=== PATIENT | male | born 1985 | race Caucasian/White ===

== ENCOUNTER 2016-11-30 10:50 | Emergency (ER) | payer MEDICAID ==
[~2016-11-30] VITALS: Ht 175.3 cm; Wt 74.0 kg
[2016-11-30 10:54] VITALS: Ht 175.3 cm; Wt 74.0 kg
--- NOTE | 2016-11-30 12:14 | RADRPT ---
PROCEDURE: XR Chest AP portable CLINICAL INDICATION: Chest pain, short of breath TECHNIQUE: An AP portable radiograph of the chest was submitted. COMPARISON: None. FINDINGS: Support Hardware: None Cardiovascular: The cardiovascular silhouette appears unremarkable. Lung Navas: The lung navas appear clear with no nodule, alveolar infiltrate, or interstitial promi nence evident. Pleural Spaces: No pneumothorax or pleural effusion is identified. Osseous Structures: The osseous structures appear intact. Soft Tissues: The soft tissues appear unremarkable. IMPRESSION: Unremarkable portable chest. Physician Gissel Date Time Electronically viewed and signed by Andrew Cyr Physician on 11/30/2016 12:14 /
[2016-11-30] MEDS ORDERED: IBUP400T22 PO (12:41)
--- NOTE | 2016-11-30 12:48 | ERD ---
ER Documentation Chief Complaint Date/Time DATE: 11/30/16 TIME: 12:42 Chief Complaint chest pain with anxiety since morning HPI Patient is a 31-year-old male who presents to the emergency department with chest pain which started 2-3 hours ago. Patient describes the pain to be episodic in nature, lasting 3-4 minutes. Patient states pain is localized to his left chest. Pain is nonradiating, nonpleuritic. Patient denies any shortness of breath. Patient describes the pain to be "pounding and pulsating" . Patient denies any diaphoresis, pain radiating down his left upper extremity , nausea, vomiting, loss of consciousness. Patient states that he feels "cold inside". Patient reports that patient is often stress due to work. Patient denies any recent travel, recent surgeries, leg swelling. Patient denies any history of cardiac disease in his family. ROS All systems reviewed and are negative except as per history of present illness. Medications Home Meds Active Scripts Ibuprofen* (Motrin*) 400 Mg Tab, 400 MG PO Q6, #30 TAB Prov:CHELE CONNOR PA-C 11/30/16 Allergies Allergies: Coded Allergies: No Known Allergy (Unverified , 03/12/15) PMhx/Soc Medical and Surgical Hx: pt denies Medical Hx, pt denies Surgical Hx History of Surgery: No Anesthesia Reaction: No Hx Neurological Disorder: No Hx Respiratory Disorders: No Hx Cardiac Disorders: No Hx Psychiatric Problems: No Hx Miscellaneous Medical Probl: No Hx Alcohol Use: Yes (3-5 times a week) Hx Substance Use: No Hx Tobacco Use: No Smoking Status: Never smoker FmHx Family History: No coronary disease, No diabetes Physical Exam Vitals Vital Signs Date Time Temp Pulse Resp B/P Pulse Ox O2 Delivery O2 Flow Rate FiO2 11/30/16 10:54 98.9 90 18 167/87 99 Physical Exam GENERAL: Well-developed, well-nourished male. Appears in no acute distress. Speaking in full sentences HEAD: Normocephalic, atraumatic. Circular, 1 cm patches of missing hair on scalp. EYES: Pupils are equally reactive bilaterally. EOMs grossly intact. No conjunctival erythema. ENT: Moist mucous membranes. No uvula deviation. No kissing tonsils. NECK: Supple. No meningismus. Normal range of motion of the neck. LUNG: Clear to auscultation bilaterally. No rhonchi, wheezing, rales or coarse breath sounds. HEART: Regular rate and rhythm. No murmurs, rubs or gallops. BACK: No midline tenderness. EXTREMITIES: Equal pulses bilaterally. No peripheral clubbing, cyanosis or edema. No unilateral leg swelling. NEUROLOGIC: Alert and oriented. Moving all four extremities without any difficulty. Normal speech. Steady gait. SKIN: Normal color. Warm and dry. No rashes or lesions. Results 24 hrs Laboratory Tests Test 11/30/16 11:43 Troponin I < 0.012ng/ml Procedures/MDM ED COURSE: The patient was stable throughout ED course. I kept the patient and/or family informed of laboratory and diagnostic imaging results throughout the ED course. EKG: Read by Dr. Fonseca, attending physician. EKG shows normal sinus rhythm at a rate of [address] elevations or T wave changes were noted. DIAGNOSTIC IMAGING: Read by radiologist. DIAGNOSTIC IMAGING REPORT Patient: BRE AUSTIN : 1985 Age: 31 Sex: M MR #: [id number] DOS: 11/30/16 1135 Ordering MD: CHELE CONNOR PA-C Location: [facility] Room/Bed: PROCEDURE: XR Chest AP portable CLINICAL INDICATION: Chest pain, short of breath TECHNIQUE: An AP portable radiograph of the chest was submitted. COMPARISON: None. FINDINGS: Support Hardware: None Cardiovascular: The cardiovascular silhouette appears unremarkable. Lung Miner: The lung miner appear clear with no nodule, alveolar infiltrate, or interstitial prominence evident. Pleural Spaces: No pneumothorax or pleural effusion is identified. Osseous Structures: The osseous structures appear intact. Soft Tissues: The soft tissues appear unremarkable. IMPRESSION: Unremarkable portable chest. Physician Gissel Date Time Electronically viewed and signed by Physician Gissel on 11/30/2016 12:14 RH/ CC: CHELE CONNOR PA-C PROCEDURES: None. MEDICAL DECISION MAKING: This is a 31-year-old male who presents with chest pain 2-3 hours. Patient does report "pounding and pulsating" pain in his chest. Patient describes the pain to be episodic. Patient denied any leg swelling, recent surgeries, travel , exogenous estrogen use. Vital signs were reviewed. Patient was afebrile. Patient was not hypoxic. Cardiac exam was normal. Lung exam was normal. EKG was within normal limits. Chest x-ray was unremarkable. Troponin was negative. Patient's heart score was calculated to be 1. At this time, the patient's presentation is most consistent with palpitations. Low suspicion for acute coronary syndrome, arrhythmia, pericarditis, PE, pneumothorax, pneumonia or pleural effusion. PRESCRIPTIONS: Ibuprofen DISCHARGE: At this time, patient is stable for discharge and outpatient management. Patient was provided with a copy of all blood work and imaging studies obtained today. I have instructed the patient to follow-up with his/her primary care physician in 1-2 days. Patient was provided with referral information see a truck hop. 24 hour Holter monitoring and/or stress echo was advised to the patient. Given referral information for concerns of missing hair patches. I have instructed the patient to promptly return to the ER at any time for any new or worsening symptoms including increased increased pain, fever, nausea, vomiting, numbness, weakness, diaphoresis or LOC. The patient and/or family expressed understanding of and agreement with this plan. All questions were answered. Home care instructions were provided. Departure Diagnosis: Primary Impression: Palpitations Condition: Stable Patient Instructions: Palpitations Referrals: XIOMY HOOKS BRUCE BHATIA,MANSOOR EVANS,ANIA BARRIENTOS,[facility] YOU HAVE RECEIVED A MEDICAL SCREENING EXAM AND THE RESULTS INDICATE THAT YOU DO NOT HAVE A CONDITION THAT REQUIRES URGENT TREATMENT IN THE EMERGENCY DEPARTMENT. FURTHER EVALUATION AND TREATMENT OF YOUR CONDITION CAN WAIT UNTIL YOU ARE SEEN IN YOUR DOCTORS OFFICE WITHIN THE NEXT 1-2 DAYS. IT IS YOUR RESPONSIBILITY TO MAKE AN APPOINTMENT FOR FOLOW-UP CARE. IF YOU HAVE A PRIMARY DOCTOR --you should call your primary doctor and schedule an appointment IF YOU DO NOT HAVE A PRIMARY DOCTOR YOU CAN CALL OUR PHYSICIAN REFERRAL HOTLINE AT IF YOU CAN NOT AFFORD TO SEE A PHYSICIAN YOU CAN CHOSE FROM THE FOLLOWING [facility] [address] [facility] [address] [facility] [address] [facility] [address] [facility] [address] [facility]. [facility] [address] [facility]. [facility] YOU HAVE RECEIVED A MEDICAL SCREENING EXAM AND THE RESULTS INDICATE THAT YOU DO NOT HAVE A CONDITION THAT REQUIRES URGENT TREATMENT IN THE EMERGENCY DEPARTMENT. FURTHER EVALUATION AND TREATMENT OF YOUR CONDITION CAN WAIT UNTIL YOU ARE SEEN IN YOUR DOCTORS OFFICE WITHIN THE NEXT 1-2 DAYS. IT IS YOUR RESPONSIBILITY TO MAKE AN APPOINTMENT FOR FOLOW-UP CARE. IF YOU HAVE A PRIMARY DOCTOR --you should call your primary doctor and schedule and appointment IF YOU DO NOT HAVE A PRIMARY DOCTOR YOU CAN CALL OUR PHYSICIAN REFERRAL HOTLINE AT . IF YOU CAN NOT AFFORD TO SEE A PHYSICIAN YOU CAN CHOSE FROM THE FOLLOWING [facility] INSTITUTIONS: [facility] [address] [place] [address] [facility] [address] [place] [address] [facility] [address] [place] [address] Additional Instructions: Call your primary care doctor TOMORROW for an appointment during the next 1-2 days.See the doctor sooner or return here if your condition worsens before your appointment time. Patient advised to follow-up with truck hop for further management of his symptoms. Patient given referral information. See referral information. CHELE CONNOR PA-C November 30, 2016 12:48
== END 2016-11-30 13:03 | disposition home or self-care (01) ==
LOC: FTE 10:50
DX: R00.2 Palpitations (principal)
CPT/HCPCS: 36415; 71010; 84484; 93005; Z7502

== ENCOUNTER 2017-02-04 17:10 | Emergency (ER) | payer MEDICAID ==
[~2017-02-04] VITALS: Wt 79.5 kg
[~2017-02-04 17:10] MED LIST: IBUP400T22 PO
[2017-02-04] MEDS ORDERED: BACITRACIN 0.9 GM OINT TOP ONE (18:00)
[2017-02-04] MEDS ORDERED: IBUPROFEN 600 MG TAB PO ONE (18:00)
--- NOTE | 2017-02-04 18:44 | RADRPT ---
PROCEDURE: XR Tibia and Fibula. CLINICAL INDICATION: Lower leg pain TECHNIQUE: Two views of the right tibia and fibula are available for review. COMPARISON: None available FINDINGS: The right tibia and fibula are intact. No acute fracture or dislocation is seen. No radiopaque for eign body is identified. The soft tissues are unremarkable. IMPRESSION: 1. Unremarkable right tibia and fibula x-ray series. RPTAT: QQ .Boone Heck MD, MD Date Time Electronically viewed and signed by .Boone Heck MD, on 02/04/2017 18:43 .L/
--- NOTE | 2017-02-04 18:45 | RADRPT ---
PROCEDURE: XR Ankle. CLINICAL INDICATION: Pain. TECHNIQUE: AP oblique and lateral views of the right ankle were performed. COMPARISON: None. FINDINGS: The osseous structures and articular spaces of the right ankle appear intact. No acute fracture or dislocation is seen. No radiopaque foreign body is identified. There is no significant soft tissue swelling. IMPRESSION: 1. Unremarkable right ankle x-ray series. RPTAT: QQ .Boone Heck MD, MD Date Time Electronically viewed and signed by .Boone Heck MD, on 02/04/2017 18:45 .L/
--- NOTE | 2017-02-04 18:45 | RADRPT ---
PROCEDURE: XR Foot. CLINICAL INDICATION: Right foot pain TECHNIQUE: AP, lateral, and oblique views of the right foot are available for review. COMPARISON: None available FINDINGS: The osseous structures, articular spaces, and surrounding soft tissues are intact. No acute fractur e or dislocation is seen. No radiopaque foreign body is identified. Bony mineralization is normal. IMPRESSION: 1. Unremarkable right foot x-ray series. RPTAT: QQ .Boone Heck MD, MD Date Time Electronically viewed and signed by .Boone Heck MD, on 02/04/2017 18:44 .L/
[2017-02-04] MEDS ORDERED: IBUP-1542 PO (19:17)
[2017-02-04] MEDS ORDERED: CEPH-443 PO (19:17)
[2017-02-04 19:37] VITALS: BP 123/75; PULSE 62; RESP 20; TEMP 98.6
--- NOTE | 2017-02-04 21:23 | ERD ---
ER Documentation Chief Complaint Date/Time DATE: 02/04/17 TIME: 21:19 Chief Complaint RIGHT BUSH AREA LACERATION FROM A FALL FROM STAIRS HPI This is a 31-year-old male that presents to the ER after a laceration that he got after he fell down the stairs. This happened to days ago. Patient is not complaining of bush pain that extends to his ankle and foot. He denies any numbness or tingling to the area. He has not tried anything for his pain. He has not had any fevers or chills. He denies any discharge or redness to the area. ROS 12 point review of systems was done, all negative except per HPI. Medications Home Meds Active Scripts Cephalexin* (Keflex*) 500 Mg Capsule, 500 MG PO BID for 7 Days, CAP Prov:JERROD PEACOCK 02/04/17 Ibuprofen* (Motrin*) 600 Mg Tab, 600 MG PO Q6, #30 TAB Prov:JERROD PEACOCK C 02/04/17 Ibuprofen* (Motrin*) 400 Mg Tab, 400 MG PO Q6, #30 TAB Prov:CHELE CONNOR PA-C 11/30/16 Allergies Allergies: Coded Allergies: No Known Allergy (Unverified , 02/04/17) PMhx/Soc Medical and Surgical Hx: pt denies Medical Hx, pt denies Surgical Hx History of Surgery: No Anesthesia Reaction: No Hx Neurological Disorder: No Hx Respiratory Disorders: No Hx Cardiac Disorders: No Hx Psychiatric Problems: No Hx Miscellaneous Medical Probl: No Hx Alcohol Use: Yes (3-5 times a week) Hx Substance Use: No Hx Tobacco Use: No Smoking Status: Never smoker Physical Exam Vitals Vital Signs Date Time Temp Pulse Resp B/P Pulse Ox O2 Delivery O2 Flow Rate FiO2 02/04/17 19:37 98.6 62 20 123/75 100 Room Air 02/04/17 17:12 98.6 65 20 138/82 99 Physical Exam GENERAL: The patient is well developed and appropriate for usual state of health , in no apparent distress. HEENT: Atraumatic. CHEST: Clear to auscultation bilaterally. There are no rales, wheezes or rhonchi. HEART: Regular rate and rhythm. No murmurs, clicks, rubs or gallops. EXTREMITIES:there is a 3cm linear vertical laceration to the right bush. Patient is ttp to the right bush. He has full ROM of the right ankle. he is not ttp to the lateral or medial malleolus. He has full ROM of foot with normal pulses and normal capillary refill NEURO: Alert and oriented. SKIN: There is no apparent rash or petechia. The skin is warm and dry. Results 24 hrs Current Medications Medications (Trade) Dose Ordered Sig/Srinivasan Route PRN Reason Start Time Stop Time Status Last Admin Dose Admin Ibuprofen (Motrin) 600 mg ONCE ONCE PO 02/04/17 18:00 02/04/17 18:01 DC 02/04/17 18:40 Bacitracin (Bacitracin Oint (Ud)) 1 applic ONCE ONCE TOP 02/04/17 18:00 02/04/17 18:01 DC 02/04/17 19:04 Procedures/MDM This is a 31-year-old male presents to the ER with a laceration to his right bush, unfortunately patient presents 48 hours after laceration and closure is not recommended at this time. There is no evidence of erythema or discharge, however patient will be given antibiotics since we do not do to close his laceration. There is no evidence of fractures or dislocations. Patient has normal range of motion of his right lower extremity and is neurovascularly intact. Suspicion for deep space infection, osteomyelitis, acute compartment syndrome is low. Patient is afebrile with no pain in the ER. He is to follow- up with his primary care doctor within 1-2 days or return to ER sooner if symptoms worsen. My medical decision making was shared with the patient he understands and agrees with plan. Departure Diagnosis: Primary Impression: Laceration Condition: Stable Patient Instructions: Laceration, All Additional Instructions: Llame al doctor DEVEN y jarrett kendra JUD PARA DENTRO DE 1-2 GONSALEZ.Dgale a la secretaria que nosotros le instruimos hacer esta jud.Avise o llame si perry condicin se empeora antes de la jud. Regresa aqui si peor o no mejor. JERROD PEACOCK Feb 04, 2017 21:23
== END 2017-02-04 19:38 | disposition home or self-care (01) ==
LOC: FTE 17:10
DX: S81.811A Laceration without foreign body, right lower leg, initial encounter (principal); W10.9XXA Fall (on) (from) unspecified stairs and steps, initial encounter; Y92.9 Unspecified place or not applicable
CPT/HCPCS: 73590; 73610; 73630; Z7502; Z7610

== ENCOUNTER 2018-10-02 10:04 | Emergency (ER) | payer MEDICAID ==
[~2018-10-02] VITALS: Wt 78.0 kg
[~2018-10-02 10:04] MED LIST changes: +CEPH-443 PO; +IBUP-1542 PO; +IBUP-1561 PO; -IBUP400T22 PO
[2018-10-02 10:11] VITALS: BP 133/86; PULSE 93; RESP 18
[2018-10-02] MEDS ORDERED: DOXY100T20 PO (10:23)
--- NOTE | 2018-10-02 10:27 | ERD ---
ER Documentation Chief Complaint Chief Complaint SCALP RASH HPI Patient is a 33-year-old male presents the ER for concerns of a rash in his scalp. Patient states he has had a rash for 1-2 years now. Patient states that he has tiny bumps which pop and bleed. He states that it is itchy in nature. He denies any fevers or chills. Patient denies any new creams, lotions, medications or foods. Denies any new environmental changes. ROS All systems reviewed and are negative except as per history of present illness. Medications Home Meds Active Scripts Doxycycline Hyclate* (Doxycycline Hyclate*) 100 Mg Tablet.dr, 100 MG PO BID for 10 Days, TAB Prov:CHELE CONNOR PA-C 10/02/18 Cephalexin* (Keflex*) 500 Mg Capsule, 500 MG PO BID for 7 Days, CAP Prov:JERROD PEACOCK 02/04/17 Ibuprofen* (Motrin*) 600 Mg Tab, 600 MG PO Q6, #30 TAB Prov:JERROD PEACOCK 02/04/17 Ibuprofen* (Motrin*) 400 Mg Tab, 400 MG PO Q6, #30 TAB Prov:CHELE CONNOR PA-C 11/30/16 Allergies Allergies: Coded Allergies: No Known Allergy (Unverified , 02/04/17) PMhx/Soc History of Surgery: No Anesthesia Reaction: No Hx Neurological Disorder: No Hx Respiratory Disorders: No Hx Cardiac Disorders: No Hx Psychiatric Problems: No Hx Miscellaneous Medical Probl: No Hx Alcohol Use: Yes (3-5 times a week) Hx Substance Use: No Hx Tobacco Use: No FmHx Family History: No diabetes Physical Exam Vitals Vital Signs Date Temp Pulse Resp B/P (MAP) Pulse Ox O2 O2 Flow FiO2 Time Delivery Rate 10/02/18 97.8 93 18 133/86 99 10:11 (102) Physical Exam GENERAL: Well-developed, well-nourished male. Appears in no acute distress. Speaking in full sentences. HEAD: Normocephalic, atraumatic. EYES: Pupils are equally reactive bilaterally. EOMs grossly intact. No conjunctival erythema. ENT: Moist mucous membranes. No uvula deviation. No kissing tonsils. NECK: Supple. No meningismus. Normal range of motion of the neck. LUNG: No respiratory distress. EXTREMITIES: Equal pulses bilaterally. No peripheral clubbing, cyanosis or edema. No unilateral leg swelling. NEUROLOGIC: Alert and oriented. Moving all four extremities without any difficulty. Normal speech. Steady gait. SKIN: Numerous cystic lesions noted on the patient's scalp. Excoriations ferrer noted. No active bleeding or discharge. Areas of alopecia noted. Procedures/MDM MEDICAL DECISION MAKING: This is a 33-year-old male who presents to the ER for concerns of ongoing rash in his scalp for the last 1-2 years. Vital signs were reviewed. Patient was afebrile. Patient is not diabetic. Physical exam findings are concerning for a cystic scalp rash versus folliculitis. Patient will be given doxycycline and advised to follow-up with bilingual call center representative for further management of symptoms. Low suspicion for necrotizing fasciitis, sepsis, gangrene, Jeremi-Kvng syndrome, toxic epidural necrolysis, abscess, cellulitis, herpes zoster, viral exanthem, anaphylaxis, fungal infection, insect bite, impetigo, dermatitis. Patient was nontoxic, [id number] prior to discharge. PRESCRIPTIONS: Doxycycline DISCHARGE: At this time, patient is stable for discharge and outpatient management. I have advised the patient to avoid any new products, creams or possible allergens. I have advised the patient to avoid scratching the lesions. I have instructed the patient to follow-up with his/her primary care physician in 1-2 days. If symptoms persist, patient may need to see a bilingual call center representative for further examinations and testing. I have instructed the patient to promptly return to the ER at any time for any new or worsening symptoms including increased pain, fever, redness, swelling, warmth, difficulty breathing or vomiting. The patient and/or family expressed understanding of and agreement with this plan. All questions were answered. Home care instructions were provided. Disclaimer: Inadvertent spelling and grammatical errors are likely due to EHR/dictation software use and do not reflect on the overall quality of patient care. Also, please note that the electronic time recorded on this note does not necessarily reflect the actual time of the patient encounter. Departure Diagnosis: Primary Impression: Rash Condition: Fair Patient Instructions: Self-Care for Skin Rashes Referrals: LIDIA RIDDLE MD,OMAR SOLARES,GRIS ALCARAZ,LIAN PRIETO,RAMILA JHAVERI,ERLINDA COLMENARES,ERLINDA [facility] YOU HAVE RECEIVED A MEDICAL SCREENING EXAM AND THE RESULTS INDICATE THAT YOU DO NOT HAVE A CONDITION THAT REQUIRES URGENT TREATMENT IN THE EMERGENCY DEPARTMENT. FURTHER EVALUATION AND TREATMENT OF YOUR CONDITION CAN WAIT UNTIL YOU ARE SEEN IN YOUR DOCTORS OFFICE WITHIN THE NEXT 1-2 DAYS. IT IS YOUR RESPONSIBILITY TO MAKE AN APPOINTMENT FOR FOLOW-UP CARE. IF YOU HAVE A PRIMARY DOCTOR --you should call your primary doctor and schedule an appointment IF YOU DO NOT HAVE A PRIMARY DOCTOR YOU CAN CALL OUR PHYSICIAN REFERRAL HOTLINE AT IF YOU CAN NOT AFFORD TO SEE A PHYSICIAN YOU CAN CHOSE FROM THE FOLLOWING [facility] [address] [facility]. [facility] [address] [facility] [address] [facility] [facility] [address] [facility] [address] [facility]. [facility] [address] [facility]. [facility] YOU HAVE RECEIVED A MEDICAL SCREENING EXAM AND THE RESULTS INDICATE THAT YOU DO NOT HAVE A CONDITION THAT REQUIRES URGENT TREATMENT IN THE EMERGENCY DEPARTMENT. FURTHER EVALUATION AND TREATMENT OF YOUR CONDITION CAN WAIT UNTIL YOU ARE SEEN IN YOUR DOCTORS OFFICE WITHIN THE NEXT 1-2 DAYS. IT IS YOUR RESPONSIBILITY TO MAKE AN APPOINTMENT FOR FOLOW-UP CARE. IF YOU HAVE A PRIMARY DOCTOR --you should call your primary doctor and schedule and appointment IF YOU DO NOT HAVE A PRIMARY DOCTOR YOU CAN CALL OUR PHYSICIAN REFERRAL HOTLINE AT . IF YOU CAN NOT AFFORD TO SEE A PHYSICIAN YOU CAN CHOSE FROM THE FOLLOWING [facility] INSTITUTIONS: [facility] [address] [place] [address] [facility] [address] [place] [address] [facility] + [facility] [address] [place] [address] Additional Instructions: Follow-up with a bilingual call center representative on outpatient basis. See referral information. Call your primary care doctor TOMORROW for an appointment during the next 1-2 days.See the doctor sooner or return here if your condition worsens before your appointment time. CHELE CONNOR PA-C Oct 02, 2018 10:27
== END 2018-10-02 10:38 | disposition home or self-care (01) ==
LOC: FTE 10:04
DX: R21 Rash and other nonspecific skin eruption (principal)
CPT/HCPCS: 99283